=== PATIENT | female | born 1950 | race Caucasian/White ===

== ENCOUNTER → 2019-11-27 10:22 | Outpatient (CLI) | payer MEDICARE, MEDICAID, SELFPAY ==
[2019-11-27 10:30] VITALS: PULSE 84; PULSE 89; PULSE 92; PULSE 93; PULSE 94; PULSE 95; O2SAT 90; O2SAT 91; O2SAT 92; O2SAT 93; O2SAT 94; O2SAT 95
--- NOTE | 2019-11-28 07:44 | PCM.PSN.6M ---
PSN 6 Minute Walk Test - 6 Minute Walk Test 6 Minute Walk Test: 6 Minute Walk Test PSN:6-Minute Walk Test Start: 11/27/19 11:29 Freq: Status: Active Protocol: [id number] Document 11/27/19 10:30 EW (Rec: 11/27/19 11:33 EW [id number]) 6 Minute Walk Test Date Performed 11/27/19 Time Performed 10:30 Height 5 ft 4 in Weight: 168 lb Weight in Pounds 168.[address]: Adin Katz Assistive device used: None Pre-test Oxygen Delivery Method Room Air Pulse Ox (%) 94 Pulse Rate (60-100 beats/min) 84 Dyspnea Lyric Scale (0-10) 2 Exertion Lyric Scale (6-20) 7 1st minute Oxygen Delivery Method Room Air Pulse Ox (%) 92 Pulse Rate (60-100 beats/min) 89 2nd minute Oxygen Delivery Method Room Air Pulse Ox (%) 91 Pulse Rate (60-100 beats/min) 92 3rd minute Oxygen Delivery Method Room Air Pulse Ox (%) 90 Pulse Rate (60-100 beats/min) 84 4th minute Oxygen Delivery Method Room Air Pulse Ox (%) 95 Pulse Rate (60-100 beats/min) 94 5th minute Oxygen Delivery Method Room Air Pulse Ox (%) 94 Pulse Rate (60-100 beats/min) 95 6th minute Oxygen Delivery Method Room Air Pulse Ox (%) 92 Pulse Rate (60-100 beats/min) 94 Post-test Oxygen Delivery Method Room Air Pulse Ox (%) 93 Pulse Rate (60-100 beats/min) 93 Dyspnea Lyric Scale (0-10) 3 Exertion Lyric Scale (6-20) 12 Full Laps Walked 15 Partial Lap, Number of Tiles Walked 30 Total Distance Walked (ft) 915 - Interpretation Interpretation: The patient ambulated 915 feet over the course of 6 minutes beginning on room air without assistive devices or breaks. Pretesting oxygen saturation was noted to be 94% on room air. With ambulation, the tyrell oxygen saturation was 90%. There was no significant exertional oxygen desaturation. - Recommendations Recommendations: There is no indication for the use of supplemental oxygen at this time.
== END ==
PROVIDERS: PCP Internal Medicine; Referring Provider Internal Medicine Critical Care Medicine; Visit Provider Internal Medicine Critical Care Medicine
DX: R06.02 Shortness of breath (principal)
CPT/HCPCS: 94618

== ENCOUNTER → 2019-11-29 07:08 | Outpatient (CLI) | payer MEDICARE, MEDICAID, SELFPAY ==
--- NOTE | 2019-11-29 08:15 | ECHOD_ITS ---
Reason For Study: Dyspnea/SOB Procedure This was a 2D Doppler, Color Flow transthoracic echocardiogram. Exam performed in department. Left Ventricle Normal LV size. Left ventricular systolic function is normal. The estimated ejection fraction is 65 %. Stage 1 diastolic dysfunction. No regional wall motion abnormalities noted. Right Ventricle Normal RV size. Normal systolic function. Atria Normal left atrium. Normal right atrium. Mitral Valve Normal mitral valve. Trivial eccentric mitral valve insufficiency. Tricuspid Valve Normal tricuspid valve. Mild (1+) tricuspid valve insufficiency. Pulmonary artery systolic pressure is 37 mmHg. Aortic Valve Normal aortic valve. Trisinus/trileaflet aortic valve. Pulmonic Valve Normal pulmonic valve. Great Vessels Normal aortic root. The pulmonary artery is normal size. Inferior vena cava collapse with respiration. Pericardium/Pleural No pericardial effusion. MMode/2D Measurements & Calculations LVIDd: 3.6 cm IVSd: 1.1 cm Ao root diam: 3.0 cm LVIDs: 1.9 cm LVPWd: 1.1 cm LA dimension: 3.6 cm RVDd: 3.1 cm FS: 48.1 % LAV(MOD-bp): 36.2 ml LA A4 area: 14.9 cm2 RA A4 area: 14.7 cm2 LAV(MOD-bp) Indexed: 19.9 ml/m2 LAV(MOD-sp2): 30.9 ml LAV(MOD-sp4): 39.9 ml Time Measurements MV dec time: 0.30 sec Doppler Measurements & Calculations MV E max hu: 42.7 cm/sec Lat Peak E' Hu: 4.6 cm/sec Med Peak E' Hu: 5.1 cm/sec MV A max hu: 69.8 cm/sec E/E' lat: 9.2 E/E' med: 8.4 MV E/A: 0.61 MV V2 max: 75.5 cm/sec MV P1/2t max hu: 54.4 cm/sec Ao V2 max: 89.9 cm/sec MV max P.3 mmHg MV P1/2t: 46.5 msec Ao max P.2 mmHg MV V2 mean: 37.1 cm/sec MV dec slope: 342.3 cm/sec2 MV mean P.66 mmHg MVA(P1/2t): 4.7 cm2 MV V2 VTI: 18.3 cm LV V1 max: 77.4 cm/sec PA V2 max: 80.0 cm/sec TR max hu: 289.4 cm/sec LV V1 max P.4 mmHg TR max P.5 mmHg Interpretation Summary Normal LV size. Left ventricular systolic function is normal. The estimated ejection fraction is 65 %. Stage 1 diastolic dysfunction. Pulmonary artery systolic pressure is 37 mmHg. Ordering Physician: Adin Katz Referring Physician: Adin Katz Performed By: Ace Chowdhury RCS
--- NOTE | 2019-11-29 11:37 | PFT ---
INTRODUCTION: The patient is a 69-year-old female that presents for pulmonary function studies secondary to a diagnosis of shortness of breath. Respiratory therapy reports good patient effort. Bronchodilators were used during testing. INTERPRETATION: Forced expiration spirometry demonstrates the presence of a moderately severe large airways obstructive ventilatory defect. There was no significant response to aerosolized bronchodilators. Spirograms are of good quality and plateau gradually indicating slow emptying of the lungs. Body plethysmography was performed and reveals lung volumes to be within normal limits. Diffusing capacity by single breath CO is reduced to 54% of predicted. IMPRESSION: Irreversible moderately severe large airways obstructive ventilatory defect with symmetric reduction in diffusing capacity.
== END ==
PROVIDERS: PCP Internal Medicine; Referring Provider Internal Medicine Critical Care Medicine; Visit Provider Internal Medicine Critical Care Medicine
DX: R06.02 Shortness of breath (principal)
CPT/HCPCS: 93306; 94060; 94726; 94729

== ENCOUNTER → 2020-02-04 13:34 | Outpatient (CLI) | payer MEDICARE, MEDICAID, SELFPAY ==
[2020-01-23 08:33] VITALS: BMI 29.7
--- NOTE | 2020-02-04 13:36 | CT_ITS ---
STUDY: CT CHEST WITHOUT CONTRAST REASON FOR EXAM: Female, 69 years old. CONCERN FOR BRONCHIECTASIS. SOB. H/O ASTHMA RADIATION DOSAGE (If Supplied By Facility): CTDIvol = ( 14.80 ) mGy, DLP = ( 436.24 ) mGycm TECHNIQUE: Transaxial imaging was performed without the administration of intravenous contrast material. Multiplanar coronal and sagittal images were reformatted. Individualized dose optimization techniques were used for this CT. COMPARISON: None. FINDINGS: Small calcified granulomas in the peripheral lateral aspect of the right upper lobe. There is evidence of a tree in bud changes in the upper lobe suggestive of scarring. This is worse in the lingular segment of the left upper lobe. There is evidence of a scarring in the mild bronchiectasis in the lower lobes more prominent on the right side. There is no demonstrated pleural abnormality. Normal heart and pericardium. There are multiple small lymph nodes within the mediastinum, which are normal in size and morphology most compatible with reactive lymph hyperplasia. Normal hilar regions. Normal unenhanced pulmonary arteries. There is atherosclerotic calcification of the aortic arch . There is demineralization of the thoracic spine. Surgical clips are seen at the gastroesophageal junction. Calcified splenic granulomas. CT/Chest without Contrast IMPRESSION: Scarring with the tree-in-bud appearance in the upper lobes as well as in the lower lobes more prominent on the right side with mild bronchiectasis in the right lower lobe. Electronically Signed: Otis Thomas, at 14:55 EDT , Service support ,
== END ==
PROVIDERS: PCP Internal Medicine; Referring Provider Internal Medicine Critical Care Medicine; Visit Provider Internal Medicine Critical Care Medicine
DX: J47.9 Bronchiectasis, uncomplicated (principal); J45.909 Unspecified asthma, uncomplicated
CPT/HCPCS: 71250

== ENCOUNTER 2021-08-19 09:43 | Outpatient (RCR) | payer MEDICARE, MEDICAID, SELFPAY ==
--- NOTE | 2021-08-19 11:30 | HP.OTEVAL_ITS ---
Patient's Visit Information JAKE MULLER is a 71 year old F, referred to Occupational Therapy by JUAN BUSH, with a diagnosis of lymphedema. Date of Evaluation: 08/19/21 Occupational Therapist: Lakisha Mejía, KATHLEEN/Maico, CHT - Subjective This 71 year old female was seen for OT eval with dx of Lymphedema- pt states she noticed swelling after her right hip sx. december of 2020. pt states [place] was in [place] due to [place] and on O2 and she fell over her O2 tubbing- pt states she tries to sit with legs elevated during the day and night-. pt states shoaib hose are painful- pt lives [facility] a [facility]- states her sister is her POA and can order items for pts. pt would like to know what she can do to improve her circulation. - Lymphedema (Circumferential Measure) Mid-foot: right 23cm left 23.5.cm Ankle: right 28cm left 27cm Lower calf: right 24.5cm left 26cm Largest calf: right 39cm left 39cm Below knee: right 39cm left 39cm - Lower Limb Functional Index Lower Extremity Functional Score: 25 - Goals Demonstrate a 20% reduction in edema by d/c: Yes Demonstrate adequate knowledge of self-massage by 2nd week: Yes Demonstrate adequate knowledge skin care/prec by 2nd week: Yes Demonstrate adequate knowledge therapeutic exercises by d/c: Yes Select approp compression garment w/donning/care/wear by d/c: Yes Voice need to replace compression garment every 4-6mo by dc: Yes - Rehabilitation General Assessment: Pt demo with bilateral LE lymphedema- pt has not been educated in mtg. her swelling at this time- pt would benefit from skilled OT services 2-3 visits to ensure pts understanding of life long mtg of her lymphedema with use of lymph stim exercise, self manual lymph drainage massage- and use of compression devise 20-30mmHg. Due to pts limited ability to put compression socks on- therapist ed. pt that there were Velcro closure devices she could use- pt demo understanding and stated she could do exercises herself and would have her sister order her compression devices (Velcro closure)- therapist advised pt could call with questions, or she can schedule apt and have her sister here if needed to understand dx and self mtg treatments. pt demo understanding and agree to POC. Rehabilitation Potential: Good - Anticipated Interventions Education re Diagnosis, Manual Lymph Drainage, Education re Life-long lymphedema Management, Education re Skin Care and Precautions, Education re Self Massage Techniques, Education re Correct Donning Tech,Care&Wearing Sched Comp Garments, Caregiver Training, Home Program - Visit Plan TEXT: Thank you for the opportunity to evaluate your patient. For Medicare and Medicare HMO plans, please review the plan of care and approve it. It will need to be FAXED BACK to us at [phone] for Medicare purposes. Please let me know if there are questions or concerns regarding this plan of car e. Physician Signature: Date:
--- NOTE | 2022-02-15 13:30 | HP.OT.NRP ---
JAKE MULLER was seen in my office for initial evaluation on 08/19/21. The following Plan of Care was established for this patient: Anticipated Interventions: Education re Diagnosis, Manual Lymph Drainage, Education re Life-long lymphedema Management, Education re Skin Care and Precautions, Education re Self Massage Techniques, Education re Correct Donning Tech,Care&Wearing Sched Comp Garments, Caregiver Training, Home Program This patient was last seen in our office 08/19/21. Pertinent comments regarding their Occupational therapy will appear below: pt seen for initial eval only- due to time lapse in services pt d/c at this time. At this point I will be discontinuing this patient from occupational therapy. I would be happy to see this patient again in the future if found appropriate by the physician. Thank you! Lakisha Mejía, OTR/L, CHT
== END 2021-08-19 19:00 | disposition home or self-care (01) ==
LOC: OT 09:43
PROVIDERS: PCP Internal Medicine
DX: I89.0 Lymphedema, not elsewhere classified (principal)
CPT/HCPCS: 97166; 97530